=== PATIENT | male | born 1975 | race Caucasian/White ===

== ENCOUNTER → 2018-04-25 | Outpatient (CLI) | payer BC ==
--- NOTE | 2018-04-25 11:24 | RADIOLOGY REPORT (SQ) ---
EXAM DESCRIPTION: BARIUM SWALLOW ESOPHAGUS COMPLETED DATE/TIME: 04/25/2018 11:00 am REASON FOR STUDY: DIVERTICULUM OF ESOPHAGUS (K22.5) K22.5 DIVERTICULUM OF ESOPHAGUS, ACQUIRED COMPARISON: None. TECHNIQUE: Under fluoroscopic guidance, patient ingested effervescent granules followed by thick and thin barium. Fluoroscopic spot images and routine radiographic images acquired and stored on PACS. 12 MM BARIUM TABLET GIVEN: Yes. Pill stuck at the thoracic inlet requiring vomiting to clear LIMITATIONS: None. FLUOROSCOPY TIME: FLUORO TIME: 1 minutes 42 seconds of fluoroscopy was used. 12 images saved to PACS. FINDINGS: NEUROMUSCULAR COORDINATION OF SWALLOW: Normal. No aspiration. ESOPHAGEAL MOTILITY: Normal peristalsis. No esophageal spasm. ESOPHAGEAL MUCOSA: Focal area of stricture and mucosal irregularity at the thoracic inlet just distal to the cricopharyngeus. Bilateral diverticula are seen in this area, the largest on the right. Thi s area of narrowing causes delay in passage of the 12 mm barium tablet exceeding 15 minutes requiring vomiting to clear. Just distal to this area there is trabeculation and mucosal thickening of the es ophagus possibly related to inflammation. GASTRO-ESOPHAGEAL JUNCTION: Small sliding hiatal hernia with free-flowing gastroesophageal reflux see n. Schatzki's ring formation is identified which appears significant although the 12 mm barium table t never reached this area. NON-GI TRACT STRUCTURES: No significant finding. OTHER: No other significant finding. IMPRESSION: HIGH-GRADE STRICTURE JUST DISTAL TO THE CRICOPHARYNGEUS AT THE LEVEL OF THE THORACIC INL ET WITH SMALL BILATERAL DIVERTICULA WHICH CAUSES DELAY IN PASSAGE OF A 12 MM BARIUM TABLET. MUCOSAL THICKENING AND TRABECULATION OF THE ESOPHAGUS JUST DISTAL TO THE STRICTURE, PROBABLY INFLAMMATORY RES PONSE. SMALL SLIDING HIATAL HERNIA WITH FREE-FLOWING GASTROESOPHAGEAL REFLUX. TIGHT SCHATZKI'S RING FORMATION IDENTIFIED. RECOMMENDATION: Endoscopy for further evaluation. COMMENT: Quality ID [id number]: Final reports for procedures using fluoroscopy that document radiation exp osure indices, or exposure time and number of fluorographic images (if radiation exposure indices are not available) TECHNICAL DOCUMENTATION: JOB ID: [id number] [employer]- All Rights Reserved Reading location - IP/workstation name: [email or web address] [id number]
== END ==
LOC: RAD 09:25
PROVIDERS: ATTEND Otolaryngology
DX: K22.5 Diverticulum of esophagus, acquired (principal)
CPT/HCPCS: 74220

== ENCOUNTER 2020-01-08 09:04 | Emergency (ER) | payer BC ==
--- NOTE | 2020-01-08 09:51 | ER Document Report ---
ED Medical Screen (RME) - General Chief Complaint: Nausea Stated Complaint: ABDOMINAL PAIN,NAUSEA Time Seen by Provider: 01/08/20 09:48 Primary Care Provider: JAVIER THOMPSON MD [Primary Care Provider] - Follow up as needed Information source: Patient TRAVEL OUTSIDE OF THE [place] IN LAST 30 DAYS: No - HPI Patient complains to provider of: Abdominal pain Onset: Other - This 44-year-old male presented emergency room today saying has had abdominal pain diffuse but centralizing in the right upper quadrant right upper quadrant ongoing for several days he has not been able to take any p.o. food since the hamburger yesterday afternoon he has had sips of fluid he was advised to stay n.p.o. while here in the department. - Related Data Allergies/Adverse Reactions: No Known Allergies Allergy (Unverified 01/08/20 09:45) Physical Exam - Abdominal Inspection: Normal Distension: No distension Bowel sounds: Normal Tenderness: Nontender Organomegaly: No organomegaly Notes: Patient was sitting upright but states he has not passed flatus in 48 hours bowel sounds sound hypoactive but again he is not in the correct position for full abdominal evaluation which will be performed upon arriving to the back. Doctor's Discharge - Discharge Referrals: JAVIER THOMPSON MD [Primary Care Provider] - Follow up as needed
[2020-01-08 10:22] LABS: ABSOLUTE BASOPHILS # (AUTO) 0.1 10^3/uL (0.0-0.2); ABSOLUTE EOSINOPHILS # (AUTO) 0.1 10^3/uL (0.0-0.6); ABSOLUTE LYMPHOCYTES (AUTO) 1.7 10^3/uL (0.5-4.7); ABSOLUTE NEUT (AUTO) 12.8 10^3/uL (1.7-8.2); BASOPHILS % (AUTO) 0.5 % (0-2); EOSINOPHILS % (AUTO) 0.7 % (0-6); HEMATOCRIT 46.7 % (37.9-51.0); HEMOGLOBIN 16.3 g/dL (13.5-17.0); LYMPHOCYTES % (AUTO) 10.9 % (13-45); MEAN CORPUSCULAR HEMOGLOBIN 31.4 pg (27.0-33.4); MEAN CORPUSCULAR VOLUME 90 fl (80-97); MONOCYTES % (AUTO) 6.1 % (3-13); PLATELET COUNT 246 10^3/uL (150-450); RED CELL DISTRIBUTION WIDTH 12.5 % (11.5-14.0); SEGMENTED NEUTROPHILS % (AUTO) 81.8 % (42-78); TOTAL CELLS COUNTED % (AUTO) 100 %; WHITE BLOOD COUNT 15.6 10^3/uL (4.0-10.5)
[2020-01-08 10:43] LABS: ALBUMIN 4.8 g/dL (3.5-5.0); ALKALINE PHOSPHATASE 63 U/L (38-126); ANION GAP 7 (5-19); ASPARTATE AMINO TRANSFERASE 47 U/L (17-59); BILIRUBIN,TOTAL 0.8 mg/dL (0.2-1.3); BLOOD UREA NITROGEN 9 mg/dL (7-20); CALCIUM 9.4 mg/dL (8.4-10.2); CARBON DIOXIDE 29 mmol/L (22-30); CHLORIDE 103 mmol/L (98-107); GLUCOSE 122 mg/dL (75-110); POTASSIUM 4.5 mmol/L (3.6-5.0); TOTAL PROTEIN 7.7 g/dL (6.3-8.2)
--- NOTE | 2020-01-08 10:52 | RADIOLOGY REPORT (SQ) ---
EXAM DESCRIPTION: CT ABD/PELVIS WITH IV ONLY IMAGES COMPLETED DATE/TIME: 01/08/2020 10:32 am REASON FOR STUDY: pain COMPARISON: None. TECHNIQUE: CT scan of the abdomen and pelvis performed using helical scanning technique with dynamic intravenous contrast injection. No oral contrast. Images reviewed with lung, soft tissue, and bone windows. Reconstructed coronal and sagittal MPR images reviewed. Delayed images for evaluation of the urinary system also acquired. All images stored on PACS. All CT scanners at this facility use dose modulation, iterative reconstruction, and/or weight based d osing when appropriate to reduce radiation dose to as low as reasonably achievable (ALARA). [facility]: Dose Right [facility]: CareDose [facility]: Dose Right [facility]: Teradose 4D [facility]: RedDrummer CONTRAST TYPE AND DOSE: Contrast/concentration: Isovue 350.00 mmol/ml; Total Contrast Delivered: 100 .0 ml; Total Saline Delivered: 67.9 ml RENAL FUNCTION: None required. The patient is less than 50 years old. RADIATION DOSE: CT Rad equipment meets quality standard of care and radiation dose reduction techniq ues were employed. CTDIvol: NaN - NaN mGy. DLP: 0 mGy-cm. LIMITATIONS: None. FINDINGS: LOWER CHEST: No acute findings. LIVER: The relative hypoattenuation hepatic parenchyma compared to the splenic parenchyma on the port al venous phase is suggestive of underlying hepatic steatosis. The portal veins are patent. There i s no hepatic mass. SPLEEN: No splenomegaly or splenic mass. PANCREAS: There is submucosal fat deposition in the duodenum and there is stranding of the fat in the pancreaticoduodenal groove. The pancreatic parenchyma is homogeneous and there is no ductal dilatat ion or a peripancreatic fluid collection. GALLBLADDER: No abnormality that is apparent on CT. ADRENAL GLANDS: No adenopathy or mass. RIGHT KIDNEY AND URETER: No solid mass, hydronephrosis, nephrolithiasis, hydroureter or ureterolithia sis. LEFT KIDNEY AND URETER: No solid mass, hydronephrosis, nephrolithiasis, hydroureter or ureterolithias is. AORTA AND VESSELS: No aneurysm or dissection of the abdominal aorta. The abdominopelvic vasculature is patent. RETROPERITONEUM: No retroperitoneal adenopathy, hemorrhage or mass. BOWEL AND PERITONEAL CAVITY: There is no bowel obstruction, free intraperitoneal fluid, mesenteric ad enopathy or pneumatosis. APPENDIX: Normal. PELVIS: No abnormality. ABDOMINAL WALL: No mass or hernia. BONES: No fracture or osseous lesion. OTHER: No other finding. IMPRESSION: 1. There are nonspecific findings around the pancreaticoduodenal groove that includes null bmucosal fat deposition in duodenum and inflammatory stranding of the fat. As stated above, the panc reatic parenchyma is homogeneous and there is no pancreatic ductal dilate station or peripancreatic f luid collection. Clinical correlation with lipase is recommended to exclude a mild pancreatitis or d uodenitis. 2. Hepatic steatosis. TECHNICAL DOCUMENTATION: JOB ID: [id number] Quality ID # [id number]: Final reports with documentation of one or more dose reduction techniques (e.g., Au tomated exposure control, adjustment of the mA and/or kV according to patient size, use of iterative reconstruction technique) 2010 [employer]- All Rights Reserved Reading location - IP/workstation name: [email or web address]
[2020-01-08] MEDS ORDERED: ONDANSETRON HCL INJ/PF 4 MG/2 ML SDV IV ONE (11:12)
[2020-01-08] MEDS ORDERED: MORPHINE SULFATE 10 MG/ML INJ IV ONE (11:12)
--- NOTE | 2020-01-08 11:16 | ER Document Report ---
ED GI/ - General Chief Complaint: Abdominal Pain Stated Complaint: ABDOMINAL PAIN,NAUSEA Time Seen by Provider: 01/08/20 09:48 Primary Care Provider: JAVIER THOMPSON MD [Primary Care Provider] - Follow up as needed Notes: CHIEF COMPLAINT: Abdominal pain HPI: 44-year-old male presenting to the emergency department complaining of right-sided abdominal pain after eating a hamburger at [employer] yesterday. Has had nausea 1-2 episodes of vomiting. No fever ROS: See HPI - all other systems were reviewed and are otherwise negative Constitutional: no fever Eyes: no drainage, no blurred vision ENT: no runny nose, no sore throat Cardiovascular: no chest pain Resp: no SOB, no cough GI: + vomiting, no diarrhea, + abdominal pain : no dysuria Integumentary: no rash Allergy: no hives Musculoskeletal: no extremity pain or swelling Neurological: no numbness/tingling, no weakness MEDICATIONS: I agree with the patient medications as charted by the RN. ALLERGIES: I agree with the allergies as charted by the RN. PAST MEDICAL HISTORY/PAST SURGICAL HISTORY: Reviewed and agree as charted by RN. SOCIAL HISTORY: Reviewed and agree as charted by RN. FAMILY HISTORY: No significant familial comorbid conditions directly related to patient complaint EXAM: Reviewed vital signs as charted by RN. CONSTITUTIONAL: Alert and oriented and responds appropriately to questions. Well-appearing; well-nourished, moderate distress secondary to pain HEAD: Normocephalic; atraumatic EYES: PERRL; Conjunctivae clear, sclerae non-icteric ENT: normal nose; no rhinorrhea; moist mucous membranes; pharynx without lesions noted, no uvula edema or deviation, no tonsillar hypertrophy, phonation normal NECK: Supple without meningismus; non-tender; no cervical lymphadenopathy, no masses CARD: RRR; no murmurs, no clicks, no rubs, no gallops; symmetric distal pulses RESP: Normal chest excursion without splinting or tachypnea; breath sounds clear and equal bilaterally; no wheezes, no rhonchi, no rales, pulse oximetry 98% on room air not hypoxic ABD/GI: Normal bowel sounds; non-distended; soft, there is tenderness in the ri ght lateral and lower quadrant but there is moderate tenderness in the epigastric right upper quadrant region as well. no rebound, no guarding; no palpable organomegaly or masses. BACK: The back appears normal and is non-tender to palpation, there is no CVA tenderness EXT: Normal ROM in all joints; non-tender to palpation; no cyanosis, no effusions, no edema SKIN: Normal color for age and race; warm; dry; good turgor; no acute lesions noted NEURO: Moves all extremities equally; Motor and sensory function intact PSYCH: The patient's mood and manner are appropriate. Grooming and personal hy giene are appropriate. MDM: 44-year-old male with right-sided abdominal pain after eating a hamburger yesterday. No history of abdominal surgeries. Initial screening labs from triage show a leukocytosis of 15.6. Chemistry including lipase is normal. CT imaging shows possible duodenitis, no appendicitis. Will obtain ultrasound of the gallbladder. TRAVEL OUTSIDE OF THE [place] IN LAST 30 DAYS: No - Related Data Allergies/Adverse Reactions: No Known Allergies Allergy (Unverified 01/08/20 09:45) Past Medical History - General Information source: Patient - Social History Smoking Status: Former Smoker Chew tobacco use (# tins/day): No Frequency of alcohol use: None Drug Abuse: None Family History: Reviewed & Not Pertinent Patient has homicidal ideation: No Course - Re-evaluation Re-evalutation: 01/08/20 12:40 Discussed evaluation results with the patient and the spouse, gallbladder ultrasound does not show acute findings. CT imaging shows a normal appendix but suggests duodenitis. He is on Prevacid 30 mg already daily as well as Gaviscon. Will give additional pain medications here. He sees Dr. Aldana gastroagatha terology will call their office today for follow-up return instructions discussed - Laboratory Result Diagrams: 01/08/20 10:00 01/08/20 10:00 Laboratory results interpreted by me: 01/08/20 01/08/20 10:00 10:00 WBC 15.6 H Lymph % (Auto) 10.9 L Absolute Neuts (auto) 12.8 H Seg Neutrophils % 81.8 H Glucose 122 H ALT 130 H Discharge - Discharge Clinical Impression: Abdominal pain, right lateral Condition: Stable Disposition: HOME, SELF-CARE Additional Instructions: Take the pain medications as prescribed, continue your previous medications for your stomach. Call your detective sergeant today to schedule close follow-up in the office if you have uncontrolled pain onset of fever return for reevaluation. Your imaging studies today suggest an inflammation of your duodenum as the cause of your pain. no greasy or spicy foods Prescriptions: Oxycodone HCl/Acetaminophen [Percocet 5-325 mg Tablet] 1 tab PO Q4H PRN #15 tab PRN Reason: Referrals: JAVIER THOMPSON MD [Primary Care Provider] - Follow up as needed SEUN ALDANA MD [NO LOCAL MD] - Follow up as needed
--- NOTE | 2020-01-08 12:24 | RADIOLOGY REPORT (SQ) ---
EXAM DESCRIPTION: U/S ABDOMEN LIMITED W/O DOP IMAGES COMPLETED DATE/TIME: 01/08/2020 12:10 pm REASON FOR STUDY: ruq pain COMPARISON: None. TECHNIQUE: Dynamic and static grayscale images acquired of the abdomen and recorded on PACS. Additio nal selected color Doppler and spectral images recorded. LIMITATIONS: Bowel gas, body habitus PE FINDINGS: PANCREAS: Not seen LIVER: Increased echogenicity. No masses. LIVER VASCULATURE: Normal directional flow of the main portal vein and hepatic veins. GALLBLADDER: No stones. Normal wall thickness. No pericholecystic fluid. ULTRASOUND-DETECTED CLARK'S SIGN: Negative. INTRAHEPATIC DUCTS AND COMMON DUCT: CBD and intrahepatic ducts normal caliber. No filling defects. AORTA: No aneurysm. The midportion of the aorta is not seen. RIGHT KIDNEY: Normal size, 10.6 cm. Normal echogenicity. No solid or suspicious masses. No hydroneph rosis. No calcifications. PERITONEAL AND RIGHT PLEURAL SPACE: No ascites or effusions. OTHER: No other significant findings. IMPRESSION: Hepatic steatosis. TECHNICAL DOCUMENTATION: JOB ID: [id number] 2010 [employer]- All Rights Reserved Reading location - IP/workstation name: [email or web address]
[2020-01-08] MEDS ORDERED: OXYCODONE-ACETAMINOPHEN 5-325 MG TABLET PO ONE (12:40)
[2020-01-08] MEDS ORDERED: MAG HYDROX/AL HYDROX/SIMETH SUSP 30 ML UDCUP PO ONE (12:41)
[2020-01-08] MEDS ORDERED: METOCLOPRAMIDE HCL ORAL SOLN 10 MG/10 ML UDCUP PO ONE (12:41)
[2020-01-08] MEDS ORDERED: LIDOCAINE 2% VISCOUS SOLN 15 ML UDCUP PO ONE (12:41)
== END 2020-01-08 13:15 | disposition home or self-care (01) ==
LOC: ER 09:04
DX: R10.9 Unspecified abdominal pain (principal); R11.10 Vomiting, unspecified
CPT/HCPCS: 99284; 96374; 96375; 36415; 83690; 85025; 80053; 76705; 74177; J3490; J2270; J2405